=== PATIENT | male | born 1960 | race Caucasian/White ===

== ENCOUNTER → 2017-04-28 | Outpatient (CLI) | payer OTHER ==
--- NOTE | 2017-04-28 11:37 | REP ---
KUB, TWO VIEWS: HISTORY: Renal stones. A small amount of air is present in small and large intestine. There are no air fluid levels or dilated loops of intestine. There is no pneumoperitoneum. Calcification is present overlying the left kidney consistent with nephrolithiasis. The patient is status post stenting of an abdominal aortic aneurysm. IMPRESSION: 1. Nonspecific bowel gas pattern. 2. Left nephrolithiasis. Signed by Guille Geronimo MD 04/28/2017 11:52 A
== END ==
LOC: M SMT 10:46
PROVIDERS: ATTEND Nurse Practitioner Women's Health
DX: N20.0 Calculus of kidney (principal)

== ENCOUNTER → 2021-03-16 | Outpatient (REF) ==
--- NOTE | 2021-03-16 13:12 | REP ---
INDICATION: BACK + KNEE PAIN. COMPARISON: Comparison KUB April 28, 2017. TECHNIQUE: Four views of the lumbar spine are provided. FINDINGS: The patient is status post aorta bi-iliac stent graft the repair. There is a 1.1 cm calculus projecting over the upper pole collecting system of the left kidney. This is unchanged. Lumbar vertebral body heights are preserved. Alignment is normal. Disc spaces are maintained in the lumbar spine on the lateral radiograph. There is no evidence of spondylolysis or spondylolisthesis. There is osteoarthritic facet hypertrophy and sclerosis bilaterally at L4-5, L5-S1, and to a lesser extent, at L3-4. Psoas margins are symmetric. Sacrum and SI joints are intact. IMPRESSION: Aorto bi-iliac stent graft. Intrarenal nephrolithiasis left kidney 1.1 cm calculus. Degenerative disc and osteoarthritic facet changes as noted above. <Electronically signed by Lan Carr > 03/16/21 [id number]
--- NOTE | 2021-03-16 13:13 | REP ---
INDICATION: BACK + KNEE PAIN. COMPARISON: None. TECHNIQUE: Five views of the left knee are provided. FINDINGS: Five views of the left knee demonstrate mild superior pole and inferior pole articular spurring of the patella. There is minimal patellar spurring on the sunrise view. There is some vascular calcification. Bones, joints, and soft tissues are otherwise unremarkable. No erosive changes seen. No fracture or subluxation is seen. No opaque foreign body noted. IMPRESSION: Mild patellofemoral osteoarthritis. Vascular calcification. Otherwise negative. <Electronically signed by Lan Carr > 03/16/21 [id number]
== END ==
LOC: M PLAIMG 10:53
PROVIDERS: ATTEND Internal Medicine
DX: M17.12 Unilateral primary osteoarthritis, left knee (principal); N20.0 Calculus of kidney; Z95.5 Presence of coronary angioplasty implant and graft; M51.36 Other intervertebral disc degeneration, lumbar region; M51.37 Other intervertebral disc degeneration, lumbosacral region; M25.562 Pain in left knee; M54.9 Dorsalgia, unspecified

== ENCOUNTER 2023-03-19 19:48 | Inpatient (IN) | payer BC, OTHER ==
[~2023-03-19] VITALS: Ht 180.3 cm; Wt 118.0 kg
[2023-03-19 20:18] LABS: BASO # 0.1 10^3/uL (0.0-0.2); BASO % 0.7 % (0.0-1.0); EOS # 0.2 10^3/uL (0.0-0.5); EOS % 1.7 % (0.0-3.0); HEMATOCRIT 33.9 % (42.0-52.0); LYMPH % 20.9 % (24.0-44.0); MEAN CORPUSCULAR HEMOGLOBIN 24.3 pg (27.0-33.0); MEAN CORPUSCULAR HGB CONC 29.5 g/dl (32.0-36.5); MEAN CORPUSCULAR VOLUME 82.3 fl (80.0-96.0); MONO % 10.6 % (2.0-8.0); NEUTROPHILS # 6.2 10^3/uL (1.5-8.5); NEUTROPHILS % 65.6 % (36.0-66.0); PLATELET COUNT, AUTOMATED 271 10^3/uL (150-450); RED BLOOD COUNT 4.12 10^6/uL (4.30-6.10); WHITE BLOOD COUNT 9.5 10^3/uL (4.0-10.0)
[2023-03-19] MEDS ORDERED: AMIODARONE HCL 150 MG in IV 1 EA IV ONE (20:40)
[2023-03-19 20:42] LABS: CK-MB VALUE MASS 1.4 NG/ML (<3.6)
[2023-03-19] MEDS ORDERED: UNRESOLVED CLARIFICATION ENTRY XX STA (20:42)
[2023-03-19 20:44] LABS: ALBUMIN 2.9 G/DL (3.2-5.2); ALKALINE PHOSPHATASE 66 U/L (46-116); ALT/SGPT 14 U/L (7.0-40); AST/SGOT 10 U/L (<34); BILIRUBIN,DIRECT 0.3 MG/DL (<0.4); BILIRUBIN,TOTAL 0.8 MG/DL (0.3-1.2); BLOOD UREA NITROGEN 17 MG/DL (9-23); CALCIUM LEVEL 8.5 MG/DL (8.3-10.6); CARBON DIOXIDE LEVEL 36 MMOL/L (20-31); CHLORIDE LEVEL 103 MMOL/L (98-107); CREATININE FOR GFR 0.85 MG/DL (0.70-1.30); GLOMERULAR FILTRATION RATE > 60.0 (>49); GLUCOSE, FASTING 106 MG/DL (74-106); POTASSIUM SERUM 4.2 MMOL/L (3.5-5.1); SODIUM LEVEL 144 MMOL/L (136-145); TOTAL PROTEIN 5.3 G/DL (5.7-8.2)
[2023-03-19 20:55] LABS: RSV AMPLIFICATION NEGATIVE (NEGATIVE)
[2023-03-19 20:58] LABS: CPK CREATINE PHOSPHOKINASE 37 U/L (46-171); MB/CK RELATIVE INDEX 3.78 (< OR =4)
[2023-03-19] MEDS: METOPROLOL 5 MG/5 ML VIAL IV SCH ×6 (21:10→22:30)
[2023-03-19] MEDS ORDERED: ISOVUE-370 76% 100ML VIAL As Ordered ONE (21:26)
[2023-03-19 21:40] LABS: ABG BASE EXCESS 6.1 (-2.0-2.0); ABG HCO3 32.1 MMOL/L (22.0-26.0); ABG O2 SATURATION 98.1 % (95.0-99.0); ABG PARTIAL PRESSURE CO2 53.2 mmHg (35.0-45.0); ABG PARTIAL PRESSURE O2 106.5 mmHg (75.0-100.0); ABG TOTAL CO2 33.7 MMOL/L (23.0-31.0); ABG pH (ARTERIAL) 7.398 UNITS (7.350-7.450)
[2023-03-19] MEDS ORDERED: METOPROLOL TART 50 MG TAB PO ONE (22:20)
[2023-03-19 23:36] LABS: PROCALCITONIN 0.07 ng/ml
[2023-03-20] VITALS (13 sets, daily range): BP systolic 130–138; BP diastolic 64–95; TEMP 97.8–98; O2SAT 96–98
[2023-03-20] MEDS ORDERED: IPRATROPIUM 0.5MG/ALBUTEROL 2.5MG INH SOL UD 3ML (DUONEB) NEB SCH (02:00)
[2023-03-20] MEDS ORDERED: FUROSEMIDE 40MG/4ML VIAL IV ONE (02:20)
[2023-03-20] MEDS ORDERED: MAALOX 30 ML SUSP *UDC PO PRN (03:35)
[2023-03-20] MEDS ORDERED: MOM 30ML SUSPENSION UDC PO PRN (03:35)
[2023-03-20] MEDS ORDERED: ACETAMINOPHEN TAB 650MG DOSE (2X325MG) PO PRN (03:35)
[2023-03-20] MEDS ORDERED: TAMS1CAP17 PO (03:46)
[2023-03-20] MEDS ORDERED: FURO40TA2 PO (03:46)
[2023-03-20] MEDS ORDERED: LEVA1.2519 PO (03:52)
[2023-03-20] MEDS ORDERED: METO1TAB33 PO (03:52)
[2023-03-20] MEDS ORDERED: ELIQ5TAB PO (03:52)
[2023-03-20] MEDS ORDERED: POTA1TAB23 PO (03:52)
[2023-03-20] MEDS ORDERED: FERR325T19 PO (03:52)
[2023-03-20] MEDS ORDERED: FINA5TAB2 PO (03:52)
[2023-03-20] MEDS ORDERED: ASPI-226 PO (03:52)
[2023-03-20] MEDS ORDERED: LISI20TA33 PO (03:52)
[2023-03-20] MEDS ORDERED: ATOR40TA75 PO (03:52)
[2023-03-20] MEDS ORDERED: HOME MED LIST COMPLETE! XX SCH (03:55)
[2023-03-20] MEDS: FUROSEMIDE 40MG/4ML VIAL IV SCH ×2 (07:29→17:40)
[2023-03-20] MEDS: ASPIRIN 81MG ENTERIC TABLET PO SCH (07:30)
[2023-03-20] MEDS: TAMSULOSIN 0.4 MG CAP PO SCH (07:30)
[2023-03-20] MEDS: APIXABAN 5 MG TAB (ELIQUIS) PO SCH ×2 (07:31→20:35)
[2023-03-20] MEDS: FINASTERIDE 5MG TAB PO SCH (07:31)
[2023-03-20 07:34] LABS: HEMATOCRIT 35.7 % (42.0-52.0); HEMOGLOBIN 10.4 g/dl (13.5-17.5); MEAN CORPUSCULAR HEMOGLOBIN 24.3 pg (27.0-33.0); MEAN CORPUSCULAR HGB CONC 29.1 g/dl (32.0-36.5); MEAN CORPUSCULAR VOLUME 83.4 fl (80.0-96.0); PLATELET COUNT, AUTOMATED 286 10^3/uL (150-450); RED BLOOD COUNT 4.28 10^6/uL (4.30-6.10); WHITE BLOOD COUNT 10.2 10^3/uL (4.0-10.0)
[2023-03-20] MEDS: LEVALBUTEROL 1.25MG 0.5ML CONCENTRATE NEB INH SCH ×3 (07:37→20:13)
[2023-03-20 08:10] LABS: ALBUMIN 2.9 G/DL (3.2-5.2); ALKALINE PHOSPHATASE 70 U/L (46-116); ALT/SGPT 19 U/L (7.0-40); AST/SGOT 9 U/L (<34); BLOOD UREA NITROGEN 17 MG/DL (9-23); CALCIUM LEVEL 8.6 MG/DL (8.3-10.6); CARBON DIOXIDE LEVEL 35 MMOL/L (20-31); CHLORIDE LEVEL 100 MMOL/L (98-107); CREATININE FOR GFR 0.79 MG/DL (0.70-1.30); GLOMERULAR FILTRATION RATE > 60.0 (>49); GLUCOSE, FASTING 222 MG/DL (74-106); POTASSIUM SERUM 4.4 MMOL/L (3.5-5.1); SODIUM LEVEL 140 MMOL/L (136-145); TOTAL PROTEIN 5.8 G/DL (5.7-8.2)
[2023-03-20] MEDS ORDERED: METOPROLOL SUCC (TopROL XL) 100MG *XL* TAB PO SCH (09:00)
[2023-03-20] MEDS ORDERED: GLUCAGON INJ 1MG VIAL SC PRN (11:00)
[2023-03-20] MEDS ORDERED: DEXTROSE 50% 50ML SYRINGE IV PRN (11:00)
[2023-03-20] MEDS ORDERED: GLUCOSE 4GM CHEW TABLET PO PRN (11:00)
[2023-03-20] MEDS: METOPROLOL TART 50 MG TAB PO SCH ×2 (11:28→17:40)
[2023-03-20] MEDS: INSULIN LISPRO (NovoLOG) PER UNIT SC SCH ×2 (12:47→17:30)
[2023-03-20 13:53] LABS: HEMOGLOBIN A1c 5.8 % (4.0-6.0)
[2023-03-20] MEDS: ATORVASTATIN 20 MG TAB PO SCH (20:34)
[2023-03-21] VITALS (22 sets, daily range): BP systolic 104–161; BP diastolic 61–94; TEMP 96.7–97.9; O2SAT 83–99
[2023-03-21] MEDS: METOPROLOL TART 50 MG TAB PO SCH ×5 (00:21→23:03)
[2023-03-21] MEDS: LEVALBUTEROL 1.25MG 0.5ML CONCENTRATE NEB INH SCH ×4 (01:25→19:58)
[2023-03-21 06:24] LABS: MEAN CORPUSCULAR HEMOGLOBIN 24.2 pg (27.0-33.0); MEAN CORPUSCULAR HGB CONC 28.6 g/dl (32.0-36.5); MEAN CORPUSCULAR VOLUME 84.7 fl (80.0-96.0); PLATELET COUNT, AUTOMATED 261 10^3/uL (150-450); RED BLOOD COUNT 4.13 10^6/uL (4.30-6.10); WHITE BLOOD COUNT 12.2 10^3/uL (4.0-10.0)
[2023-03-21 06:52] LABS: ALBUMIN 2.8 G/DL (3.2-5.2); ALKALINE PHOSPHATASE 62 U/L (46-116); ALT/SGPT 16 U/L (7.0-40); AST/SGOT < 8 U/L (<34); BILIRUBIN,TOTAL 0.7 MG/DL (0.3-1.2); BLOOD UREA NITROGEN 23 MG/DL (9-23); CALCIUM LEVEL 8.8 MG/DL (8.3-10.6); CARBON DIOXIDE LEVEL > 40.0 MMOL/L (20-31); CHLORIDE LEVEL 99 MMOL/L (98-107); CREATININE FOR GFR 0.92 MG/DL (0.70-1.30); GLOMERULAR FILTRATION RATE > 60.0 (>49); GLUCOSE, FASTING 117 MG/DL (74-106); MAGNESIUM LEVEL 2.3 MG/DL (1.8-2.4); POTASSIUM SERUM 4.7 MMOL/L (3.5-5.1); SODIUM LEVEL 144 MMOL/L (136-145); TOTAL PROTEIN 5.4 G/DL (5.7-8.2)
[2023-03-21] MEDS: INSULIN LISPRO (NovoLOG) PER UNIT SC SCH ×3 (07:30→17:12)
[2023-03-21] MEDS: ASPIRIN 81MG ENTERIC TABLET PO SCH (09:23)
[2023-03-21] MEDS: TAMSULOSIN 0.4 MG CAP PO SCH (09:23)
[2023-03-21] MEDS: FINASTERIDE 5MG TAB PO SCH (09:23)
[2023-03-21] MEDS: APIXABAN 5 MG TAB (ELIQUIS) PO SCH ×2 (09:23→20:34)
[2023-03-21] MEDS ORDERED: DIGOXIN INJ 0.5 MG/2 ML AMP IV ONE ×3 (09:40→23:00)
[2023-03-21] MEDS: TIOTROPIUM INHALER/CAPSULE (SPIRIVA) INH SCH (09:55)
[2023-03-21] MEDS: FUROSEMIDE 40MG/4ML VIAL IV SCH ×2 (10:39→16:47)
[2023-03-21] MEDS: ATORVASTATIN 20 MG TAB PO SCH (20:34)
[2023-03-22] VITALS (7 sets, daily range): BP systolic 107–142; BP diastolic 58–98; TEMP 96.9–97.6; O2SAT 94–97
[2023-03-22] MEDS: LEVALBUTEROL 1.25MG 0.5ML CONCENTRATE NEB INH SCH ×4 (01:40→19:25)
[2023-03-22] MEDS: METOPROLOL TART 50 MG TAB PO SCH ×4 (06:12→23:34)
[2023-03-22] MEDS: TIOTROPIUM INHALER/CAPSULE (SPIRIVA) INH SCH (07:22)
[2023-03-22] MEDS: INSULIN LISPRO (NovoLOG) PER UNIT SC SCH ×3 (07:30→17:30)
[2023-03-22] MEDS: FUROSEMIDE 40MG/4ML VIAL IV SCH (09:12)
[2023-03-22] MEDS: TAMSULOSIN 0.4 MG CAP PO SCH (09:13)
[2023-03-22] MEDS: APIXABAN 5 MG TAB (ELIQUIS) PO SCH ×2 (09:13→20:04)
[2023-03-22] MEDS: DIGOXIN 0.25 MG TAB PO SCH (09:13)
[2023-03-22] MEDS: ASPIRIN 81MG ENTERIC TABLET PO SCH (09:13)
[2023-03-22] MEDS: FINASTERIDE 5MG TAB PO SCH (09:13)
[2023-03-22 12:26] LABS: ABG BASE EXCESS 11.9 (-2.0-2.0); ABG HCO3 37.4 MMOL/L (22.0-26.0); ABG O2 SATURATION 94.8 % (95.0-99.0); ABG PARTIAL PRESSURE CO2 53.1 mmHg (35.0-45.0); ABG PARTIAL PRESSURE O2 72.4 mmHg (75.0-100.0); ABG STANDARD HCO3 35.6 MMOL/L. (22.0-26.0); ABG TOTAL CO2 39.1 MMOL/L (23.0-31.0); ABG pH (ARTERIAL) 7.466 UNITS (7.350-7.450)
[2023-03-22] MEDS: ATORVASTATIN 20 MG TAB PO SCH (20:04)
[2023-03-23] VITALS (8 sets, daily range): BP systolic 100–136; BP diastolic 56–72; TEMP 97.5–98.3; O2SAT 93–98
[2023-03-23] MEDS: LEVALBUTEROL 1.25MG 0.5ML CONCENTRATE NEB INH SCH ×4 (01:11→19:21)
[2023-03-23] MEDS: METOPROLOL TART 50 MG TAB PO SCH ×4 (05:34→23:40)
[2023-03-23 05:54] LABS: BASO # 0.1 10^3/uL (0.0-0.2); BASO % 0.6 % (0.0-1.0); EOS # 0.1 10^3/uL (0.0-0.5); EOS % 1.8 % (0.0-3.0); HEMATOCRIT 34.5 % (42.0-52.0); HEMOGLOBIN 10.2 g/dl (13.5-17.5); LYMPH # 1.7 10^3/uL (1.5-5.0); LYMPH % 21.1 % (24.0-44.0); MEAN CORPUSCULAR HGB CONC 29.6 g/dl (32.0-36.5); MEAN CORPUSCULAR VOLUME 84.6 fl (80.0-96.0); MONO # 0.7 10^3/uL (0.0-0.8); MONO % 8.7 % (2.0-8.0); NEUTROPHILS # 5.3 10^3/uL (1.5-8.5); NEUTROPHILS % 67.5 % (36.0-66.0); PLATELET COUNT, AUTOMATED 249 10^3/uL (150-450); RED BLOOD COUNT 4.08 10^6/uL (4.30-6.10); WHITE BLOOD COUNT 7.8 10^3/uL (4.0-10.0)
[2023-03-23 06:15] LABS: BLOOD UREA NITROGEN 20 MG/DL (9-23); CALCIUM LEVEL 8.2 MG/DL (8.3-10.6); CARBON DIOXIDE LEVEL > 40.0 MMOL/L (20-31); CHLORIDE LEVEL 101 MMOL/L (98-107); CREATININE FOR GFR 0.86 MG/DL (0.70-1.30); GLOMERULAR FILTRATION RATE > 60.0 (>49); GLUCOSE, FASTING 102 MG/DL (74-106); MAGNESIUM LEVEL 2.2 MG/DL (1.8-2.4); POTASSIUM SERUM 3.8 MMOL/L (3.5-5.1); SODIUM LEVEL 145 MMOL/L (136-145)
[2023-03-23] MEDS: TIOTROPIUM INHALER/CAPSULE (SPIRIVA) INH SCH (07:50)
[2023-03-23] MEDS: acetaZOLAMIDE 250MG TAB PO SCH ×2 (08:34→20:27)
[2023-03-23] MEDS: TAMSULOSIN 0.4 MG CAP PO SCH (08:34)
[2023-03-23] MEDS: ASPIRIN 81MG ENTERIC TABLET PO SCH (08:34)
[2023-03-23] MEDS: INSULIN LISPRO (NovoLOG) PER UNIT SC SCH ×3 (08:34→17:45)
[2023-03-23] MEDS: DIGOXIN 0.25 MG TAB PO SCH (08:35)
[2023-03-23] MEDS: FINASTERIDE 5MG TAB PO SCH (08:35)
[2023-03-23] MEDS: APIXABAN 5 MG TAB (ELIQUIS) PO SCH ×2 (08:35→20:25)
[2023-03-23] MEDS ORDERED: FUROSEMIDE 40MG/4ML VIAL IV SCH (09:00)
[2023-03-23] MEDS: ATORVASTATIN 20 MG TAB PO SCH (20:26)
[2023-03-24] VITALS: BP 121/72; TEMP 97.8; O2SAT 98
[2023-03-24] MEDS: LEVALBUTEROL 1.25MG 0.5ML CONCENTRATE NEB INH SCH ×2 (01:00→07:53)
[2023-03-24 03:44] VITALS: BP 96/50; TEMP 97.4; O2SAT 95
[2023-03-24 04:00] VITALS: BP 96/50; TEMP 97.4; O2SAT 95
[2023-03-24 05:10] LABS: VENOUS BASE EXCESS 1.1 (-2.0-2.0); VENOUS HCO3 28.8 MMOL/L (23.0-27.0); VENOUS O2 SATURATION 55.9 % (60.0-80.0); VENOUS PARTIAL PRESSURE CO2 60.9 mmHg (38.0-50.0); VENOUS PARTIAL PRESSURE O2 34.2 mmHg (30.0-50.0); VENOUS PH 7.292 UNITS (7.330-7.430); VENOUS STANDARD HCO3 24.7 MMOL/L; VENOUS TOTAL CO2 30.6 MMOL/L (24.0-28.0)
[2023-03-24] MEDS: METOPROLOL TART 50 MG TAB PO SCH ×2 (05:25→13:20)
[2023-03-24 07:41] VITALS: BP 102/63; TEMP 97.1; O2SAT 97
[2023-03-24] MEDS: TIOTROPIUM INHALER/CAPSULE (SPIRIVA) INH SCH (07:53)
[2023-03-24] MEDS: APIXABAN 5 MG TAB (ELIQUIS) PO SCH (08:18)
[2023-03-24] MEDS: TAMSULOSIN 0.4 MG CAP PO SCH (08:18)
[2023-03-24] MEDS: ASPIRIN 81MG ENTERIC TABLET PO SCH (08:18)
[2023-03-24] MEDS: INSULIN LISPRO (NovoLOG) PER UNIT SC SCH ×2 (08:18→12:00)
[2023-03-24] MEDS: FINASTERIDE 5MG TAB PO SCH (08:18)
[2023-03-24] MEDS: DIGOXIN 0.25 MG TAB PO SCH (08:22)
[2023-03-24] MEDS: acetaZOLAMIDE 250MG TAB PO SCH (08:26)
[2023-03-24] MEDS ORDERED: TORSEMIDE 20 MG TAB PO SCH (09:00)
[2023-03-24] MEDS ORDERED: LISI10TA22 PO (09:19)
[2023-03-24] MEDS ORDERED: METO200T28 PO (09:19)
[2023-03-24] MEDS ORDERED: TAMS1CAP17 PO (09:19)
[2023-03-24] MEDS ORDERED: DIGO0.253 PO (09:19)
[2023-03-24 13:20] VITALS: BP 128/68
== END 2023-03-24 15:49 | disposition home or self-care (01) | DRG 201 ==
LOC: M ED 19:48 → M ED INP 03-20 03:31 → ENRESERV 03-20 14:05 → M PCU 03-20 15:03
PROVIDERS: ADMIT Family Medicine; ATTEND Family Medicine
PROC: B246ZZZ Ultrasonography of Right and Left Heart (ICD-10-PCS; principal; 2023-03-21)
DX: I48.91 Unspecified atrial fibrillation (principal); I50.33 Acute on chronic diastolic (congestive) heart failure; E87.3 Alkalosis; J96.11 Chronic respiratory failure with hypoxia; I27.20 Pulmonary hypertension, unspecified; E66.2 Morbid (severe) obesity with alveolar hypoventilation; J96.12 Chronic respiratory failure with hypercapnia; Z99.81 Dependence on supplemental oxygen; I11.0 Hypertensive heart disease with heart failure; I27.81 Cor pulmonale (chronic); L97.919 Non-pressure chronic ulcer of unspecified part of right lower leg with unspecified severity; L97.929 Non-pressure chronic ulcer of unspecified part of left lower leg with unspecified severity; G62.9 Polyneuropathy, unspecified; R16.0 Hepatomegaly, not elsewhere classified; J44.9 Chronic obstructive pulmonary disease, unspecified; F17.210 Nicotine dependence, cigarettes, uncomplicated; N40.0 Benign prostatic hyperplasia without lower urinary tract symptoms; E78.5 Hyperlipidemia, unspecified; B35.1 Tinea unguium; I87.2 Venous insufficiency (chronic) (peripheral); D50.9 Iron deficiency anemia, unspecified; F32.A Depression, unspecified; I25.10 Atherosclerotic heart disease of native coronary artery without angina pectoris; R26.89 Other abnormalities of gait and mobility; I25.2 Old myocardial infarction; R73.02 Impaired glucose tolerance (oral); M54.30 Sciatica, unspecified side; Z20.822 Contact with and (suspected) exposure to COVID-19; Z79.01 Long term (current) use of anticoagulants; Z79.82 Long term (current) use of aspirin; Z79.899 Other long term (current) drug therapy; Z91.030 Bee allergy status; Z91.018 Allergy to other foods; Z66 Do not resuscitate; Z68.37 Body mass index [BMI] 37.0-37.9, adult

== ENCOUNTER 2023-04-12 23:25 | Inpatient (IN) | payer MEDICARE, BC ==
[~2023-04-12] VITALS: Ht 180.3 cm; Wt 117.6 kg
[~2023-04-12 23:25] MED LIST: ASPI-226 PO; ATOR40TA75 PO; DIGO0.253 PO; ELIQ5TAB PO; FERR325T19 PO; FINA5TAB2 PO; FURO40TA2 PO; LEVA1.2519 PO; LISI10TA22 PO; LISI20TA33 PO; METO1TAB33 PO; METO200T28 PO; POTA1TAB23 PO; TAMS1CAP17 PO
[2023-04-13 00:22] LABS: BASO % 0.1 % (0.0-1.0); EOS # 0.1 10^3/uL (0.0-0.5); EOS % 1.1 % (0.0-3.0); HEMATOCRIT 38.9 % (42.0-52.0); HEMOGLOBIN 11.3 g/dl (13.5-17.5); LYMPH # 2.1 10^3/uL (1.5-5.0); LYMPH % 16.2 % (24.0-44.0); MEAN CORPUSCULAR HEMOGLOBIN 24.8 pg (27.0-33.0); MEAN CORPUSCULAR VOLUME 85.5 fl (80.0-96.0); MONO # 1.1 10^3/uL (0.0-0.8); MONO % 8.2 % (2.0-8.0); NEUTROPHILS # 9.7 10^3/uL (1.5-8.5); NEUTROPHILS % 73.6 % (36.0-66.0); PLATELET COUNT, AUTOMATED 218 10^3/uL (150-450); RED BLOOD COUNT 4.55 10^6/uL (4.30-6.10); WHITE BLOOD COUNT 13.2 10^3/uL (4.0-10.0)
[2023-04-13 00:33] LABS: CPK CREATINE PHOSPHOKINASE 52 U/L (46-171)
[2023-04-13 00:36] LABS: CK-MB VALUE MASS 2.7 NG/ML (<3.6); MB/CK RELATIVE INDEX 5.19 (< OR =4)
[2023-04-13 00:38] LABS: INR 1.37; PROTHROMBIN TIME 16.5 SECONDS (12.5-14.5)
[2023-04-13 00:40] LABS: THYROID STIMULATING HORMONE 1.524 uIU/ML (0.55-4.78); THYROXINE (T4) 10.5 UG/DL (4.5-10.9)
[2023-04-13 00:43] LABS: ALBUMIN 3.1 G/DL (3.2-5.2); ALKALINE PHOSPHATASE 68 U/L (46-116); ALT/SGPT 18 U/L (7.0-40); AST/SGOT 12 U/L (<34); BILIRUBIN,DIRECT 0.9 MG/DL (<0.4); BILIRUBIN,TOTAL 2.6 MG/DL (0.3-1.2); BLOOD UREA NITROGEN 26 MG/DL (9-23); CALCIUM LEVEL 7.9 MG/DL (8.3-10.6); CARBON DIOXIDE LEVEL > 40.0 MMOL/L (20-31); CHLORIDE LEVEL 100 MMOL/L (98-107); CREATININE FOR GFR 0.96 MG/DL (0.70-1.30); GLOMERULAR FILTRATION RATE > 60.0 (>49); GLUCOSE, FASTING 111 MG/DL (74-106); POTASSIUM SERUM 3.3 MMOL/L (3.5-5.1); SODIUM LEVEL 147 MMOL/L (136-145); TOTAL PROTEIN 5.4 G/DL (5.7-8.2)
[2023-04-13 01:11] LABS: ABG BASE EXCESS 10.7 (-2.0-2.0); ABG HCO3 36.5 MMOL/L (22.0-26.0); ABG O2 SATURATION 97.5 % (95.0-99.0); ABG PARTIAL PRESSURE CO2 54.2 mmHg (35.0-45.0); ABG STANDARD HCO3 34.5 MMOL/L. (22.0-26.0); ABG TOTAL CO2 38.2 MMOL/L (23.0-31.0); ABG pH (ARTERIAL) 7.446 UNITS (7.350-7.450)
[2023-04-13 01:33] LABS: CK-MB VALUE MASS 2.7 NG/ML (<3.6)
[2023-04-13 01:34] LABS: MB/CK RELATIVE INDEX 5.19 (< OR =4)
[2023-04-13] MEDS ORDERED: ISOVUE-370 76% 100ML VIAL As Ordered ONE (04:33)
[2023-04-13] MEDS ORDERED: FUROSEMIDE 40MG/4ML VIAL IV ONE (06:25)
[2023-04-13] MEDS ORDERED: methylPREDNISolone 125MG 2ML VIAL IV ONE (06:25)
[2023-04-13] MEDS ORDERED: IPRATROPIUM 0.5MG/ALBUTEROL 2.5MG INH SOL UD 3ML (DUONEB) NEB ONE (06:25)
[2023-04-13] MEDS ORDERED: METOPROLOL SUCC (TopROL XL) 100MG *XL* TAB PO ONE (06:30)
[2023-04-13] MEDS: IPRATROPIUM 0.5MG/ALBUTEROL 2.5MG INH SOL UD 3ML (DUONEB) NEB PRN (07:37)
[2023-04-13] MEDS ORDERED: PRED20TA PO (08:22)
[2023-04-13] MEDS ORDERED: AMOX875T2 PO (08:22)
[2023-04-13] MEDS ORDERED: DIGOXIN INJ 0.5 MG/2 ML AMP IV STA (08:43)
[2023-04-13] MEDS ORDERED: MED REC IN PROGRESS XX SCH (10:45)
[2023-04-13] MEDS ORDERED: LISI20TA33 PO (12:03)
[2023-04-13] MEDS ORDERED: POTA-151 PO (12:03)
[2023-04-13] MEDS ORDERED: FLOM0.4C39 PO (12:03)
[2023-04-13] MEDS ORDERED: METO200T28 PO (12:03)
[2023-04-13] MEDS ORDERED: DIGO0.253 PO (12:03)
[2023-04-13] MEDS ORDERED: DILT30TA PO (12:03)
[2023-04-13] MEDS ORDERED: PANT40TA29 PO (12:03)
[2023-04-13] MEDS ORDERED: AMIO200T49 PO (12:03)
[2023-04-13] MEDS ORDERED: HOME MED LIST COMPLETE! XX SCH (12:05)
[2023-04-13] MEDS: FUROSEMIDE 40MG/4ML VIAL IV ONE ×2 (12:10→12:22)
[2023-04-13 13:24] LABS: BLOOD UREA NITROGEN 22 MG/DL (9-23); CALCIUM LEVEL 8.1 MG/DL (8.3-10.6); CARBON DIOXIDE LEVEL 40 MMOL/L (20-31); CHLORIDE LEVEL 98 MMOL/L (98-107); CREATININE FOR GFR 0.82 MG/DL (0.70-1.30); GLOMERULAR FILTRATION RATE > 60.0 (>49); GLUCOSE, FASTING 233 MG/DL (74-106); POTASSIUM SERUM 3.8 MMOL/L (3.5-5.1); SODIUM LEVEL 143 MMOL/L (136-145)
[2023-04-13] MEDS ORDERED: POTASSIUM CHLORIDE 10MEQ SR TABLET PO ONE (15:00)
[2023-04-13 16:44] VITALS: BP 154/90; TEMP 97.1; O2SAT 96
[2023-04-13] MEDS ORDERED: FUROSEMIDE 40MG/4ML VIAL IV SCH ×2 (17:00→18:00)
[2023-04-13] MEDS: APIXABAN 5 MG TAB (ELIQUIS) PO SCH ×2 (18:02→20:37)
[2023-04-13 20:00] VITALS: BP 156/80; TEMP 97.8; O2SAT 95
[2023-04-13] MEDS: ATORVASTATIN 20 MG TAB PO SCH (20:37)
[2023-04-13] MEDS: DOCUSATE SODIUM 100MG CAPSULE PO SCH (20:37)
[2023-04-13] MEDS: LEVALBUTEROL 1.25MG 0.5ML CONCENTRATE NEB INH SCH (21:22)
[2023-04-14] VITALS (7 sets, daily range): BP systolic 112–157; BP diastolic 76–86; TEMP 97.1–98.2; O2SAT 92–98
[2023-04-14] MEDS: IPRATROPIUM 0.5MG/ALBUTEROL 2.5MG INH SOL UD 3ML (DUONEB) NEB PRN (01:56)
[2023-04-14] MEDS: guaiFENesin SYRUP 200MG 10ML UDC PO PRN ×2 (03:10→21:01)
[2023-04-14] MEDS: LEVALBUTEROL 1.25MG 0.5ML CONCENTRATE NEB INH SCH ×3 (06:03→20:27)
[2023-04-14 08:28] LABS: BASO % 0.1 % (0.0-1.0); EOS % 0.1 % (0.0-3.0); HEMATOCRIT 37.5 % (42.0-52.0); HEMOGLOBIN 11.3 g/dl (13.5-17.5); LYMPH # 1.5 10^3/uL (1.5-5.0); LYMPH % 7.9 % (24.0-44.0); MEAN CORPUSCULAR HEMOGLOBIN 25.3 pg (27.0-33.0); MEAN CORPUSCULAR HGB CONC 30.1 g/dl (32.0-36.5); MEAN CORPUSCULAR VOLUME 84.1 fl (80.0-96.0); MONO # 1.2 10^3/uL (0.0-0.8); MONO % 6.4 % (2.0-8.0); NEUTROPHILS # 16.2 10^3/uL (1.5-8.5); NEUTROPHILS % 84.7 % (36.0-66.0); PLATELET COUNT, AUTOMATED 236 10^3/uL (150-450); RED BLOOD COUNT 4.46 10^6/uL (4.30-6.10); WHITE BLOOD COUNT 19.1 10^3/uL (4.0-10.0)
[2023-04-14 08:53] LABS: BLOOD UREA NITROGEN 30 MG/DL (9-23); CALCIUM LEVEL 8.8 MG/DL (8.3-10.6); CARBON DIOXIDE LEVEL > 40.0 MMOL/L (20-31); CHLORIDE LEVEL 102 MMOL/L (98-107); CREATININE FOR GFR 0.88 MG/DL (0.70-1.30); GLOMERULAR FILTRATION RATE > 60.0 (>49); GLUCOSE, FASTING 120 MG/DL (74-106); POTASSIUM SERUM 3.6 MMOL/L (3.5-5.1); SODIUM LEVEL 146 MMOL/L (136-145)
[2023-04-14] MEDS: METOPROLOL SUCC (TopROL XL) 100MG *XL* TAB PO SCH (09:07)
[2023-04-14] MEDS: FINASTERIDE 5MG TAB PO SCH (09:07)
[2023-04-14] MEDS: DOCUSATE SODIUM 100MG CAPSULE PO SCH ×2 (09:07→20:05)
[2023-04-14] MEDS: TAMSULOSIN 0.4 MG CAP PO SCH (09:07)
[2023-04-14] MEDS: PANTOPRAZOLE 40MG TAB (PROTONIX) PO SCH (09:07)
[2023-04-14] MEDS: APIXABAN 5 MG TAB (ELIQUIS) PO SCH ×2 (09:07→20:05)
[2023-04-14] MEDS: DIGOXIN 0.25 MG TAB PO SCH (09:08)
[2023-04-14] MEDS: ACETAMINOPHEN TAB 650MG DOSE (2X325MG) PO PRN (20:04)
[2023-04-14] MEDS: ATORVASTATIN 20 MG TAB PO SCH (20:05)
[2023-04-14 22:49] LABS: APPEARANCE, URINE CLEAR (CLEAR); BACTERIA, URINE AUTO 1+ (NEGATIVE); BILIRUBIN, URINE AUTO NEGATIVE (NEGATIVE); BLOOD, URINE BLOOD 1+ (NEGATIVE); COLOR, URINE YELLOW (YELLOW); GLUCOSE, URINE (UA) AUTO NEGATIVE (NEGATIVE); KETONE, URINE AUTO NEGATIVE (NEGATIVE); LEUKOCYTE ESTERASE, URINE AUTO TRACE (NEGATIVE); MUCUS, URINE SMALL (NEGATIVE); NITRITE, URINE AUTO NEGATIVE (NEGATIVE); PROTEIN, URINE AUTO NEGATIVE (NEGATIVE); RBC, URINE AUTO 2 /HPF (0-3); SPECIFIC GRAVITY URINE AUTO 1.027 (1.002-1.035); SQUAMOUS EPITHELIAL CELL UR AU 0 /HPF (0-6); WBC, URINE AUTO 3 /HPF (0-3)
[2023-04-15 04:05] VITALS: BP 138/85; TEMP 97.6; O2SAT 97
[2023-04-15] MEDS: ACETAMINOPHEN TAB 650MG DOSE (2X325MG) PO PRN ×2 (04:16→18:44)
[2023-04-15] MEDS: IPRATROPIUM 0.5MG/ALBUTEROL 2.5MG INH SOL UD 3ML (DUONEB) NEB PRN (05:16)
[2023-04-15 05:46] LABS: BASO % 0.1 % (0.0-1.0); EOS # 0.1 10^3/uL (0.0-0.5); EOS % 0.8 % (0.0-3.0); HEMOGLOBIN 10.6 g/dl (13.5-17.5); LYMPH # 2.3 10^3/uL (1.5-5.0); LYMPH % 17.7 % (24.0-44.0); MEAN CORPUSCULAR HEMOGLOBIN 24.9 pg (27.0-33.0); MEAN CORPUSCULAR HGB CONC 28.6 g/dl (32.0-36.5); MEAN CORPUSCULAR VOLUME 86.9 fl (80.0-96.0); MONO # 0.7 10^3/uL (0.0-0.8); MONO % 5.5 % (2.0-8.0); NEUTROPHILS # 9.6 10^3/uL (1.5-8.5); NEUTROPHILS % 75.4 % (36.0-66.0); PLATELET COUNT, AUTOMATED 195 10^3/uL (150-450); RED BLOOD COUNT 4.26 10^6/uL (4.30-6.10); WHITE BLOOD COUNT 12.8 10^3/uL (4.0-10.0)
[2023-04-15 06:15] LABS: BLOOD UREA NITROGEN 28 MG/DL (9-23); CALCIUM LEVEL 8.8 MG/DL (8.3-10.6); CARBON DIOXIDE LEVEL > 40.0 MMOL/L (20-31); CHLORIDE LEVEL 102 MMOL/L (98-107); CREATININE FOR GFR 0.91 MG/DL (0.70-1.30); GLOMERULAR FILTRATION RATE > 60.0 (>49); GLUCOSE, FASTING 83 MG/DL (74-106); POTASSIUM SERUM 3.4 MMOL/L (3.5-5.1); SODIUM LEVEL 149 MMOL/L (136-145)
[2023-04-15] MEDS: LEVALBUTEROL 1.25MG 0.5ML CONCENTRATE NEB INH SCH ×3 (07:24→19:20)
[2023-04-15] MEDS ORDERED: tiZANidine 4 MG TAB PO ONE (08:30)
[2023-04-15 08:46] VITALS: BP 118/82; TEMP 96.6; O2SAT 90
[2023-04-15] MEDS: METOPROLOL SUCC (TopROL XL) 100MG *XL* TAB PO SCH (08:47)
[2023-04-15] MEDS: DIGOXIN 0.25 MG TAB PO SCH (08:48)
[2023-04-15] MEDS: APIXABAN 5 MG TAB (ELIQUIS) PO SCH ×2 (08:48→20:02)
[2023-04-15] MEDS: TAMSULOSIN 0.4 MG CAP PO SCH (08:48)
[2023-04-15] MEDS: DOCUSATE SODIUM 100MG CAPSULE PO SCH ×2 (08:48→19:37)
[2023-04-15] MEDS: PANTOPRAZOLE 40MG TAB (PROTONIX) PO SCH (08:48)
[2023-04-15] MEDS: FINASTERIDE 5MG TAB PO SCH (08:49)
[2023-04-15] MEDS: LIDOCAINE 5% (LIDODERM) PATCH TD SCH (08:49)
[2023-04-15 11:35] VITALS: BP 128/92; TEMP 96.9; O2SAT 95
[2023-04-15] MEDS: POTASSIUM CHLORIDE 10MEQ SR TABLET PO SCH (12:36)
[2023-04-15] MEDS: guaiFENesin SYRUP 200MG 10ML UDC PO PRN (12:39)
[2023-04-15 15:46] VITALS: BP 140/76; TEMP 96.6; O2SAT 95
[2023-04-15 19:20] VITALS: BP 130/69; TEMP 97; O2SAT 96
[2023-04-15] MEDS: ATORVASTATIN 20 MG TAB PO SCH (20:02)
[2023-04-15 23:06] VITALS: BP 141/85; TEMP 97; O2SAT 96
[2023-04-16 03:15] VITALS: BP 113/75; TEMP 97.1; O2SAT 93
[2023-04-16] MEDS: LEVALBUTEROL 1.25MG 0.5ML CONCENTRATE NEB INH PRN ×2 (04:21→12:41)
[2023-04-16 04:59] LABS: BASO % 0.1 % (0.0-1.0); EOS # 0.1 10^3/uL (0.0-0.5); EOS % 1.2 % (0.0-3.0); HEMATOCRIT 35.5 % (42.0-52.0); HEMOGLOBIN 10.4 g/dl (13.5-17.5); LYMPH # 1.6 10^3/uL (1.5-5.0); LYMPH % 13.9 % (24.0-44.0); MEAN CORPUSCULAR HEMOGLOBIN 25.1 pg (27.0-33.0); MEAN CORPUSCULAR HGB CONC 29.3 g/dl (32.0-36.5); MEAN CORPUSCULAR VOLUME 85.7 fl (80.0-96.0); MONO # 0.6 10^3/uL (0.0-0.8); MONO % 5.6 % (2.0-8.0); NEUTROPHILS # 8.8 10^3/uL (1.5-8.5); NEUTROPHILS % 78.8 % (36.0-66.0); PLATELET COUNT, AUTOMATED 183 10^3/uL (150-450); RED BLOOD COUNT 4.14 10^6/uL (4.30-6.10); WHITE BLOOD COUNT 11.1 10^3/uL (4.0-10.0)
[2023-04-16 05:30] LABS: BLOOD UREA NITROGEN 23 MG/DL (9-23); CALCIUM LEVEL 8.2 MG/DL (8.3-10.6); CARBON DIOXIDE LEVEL 39 MMOL/L (20-31); CHLORIDE LEVEL 104 MMOL/L (98-107); CREATININE FOR GFR 0.85 MG/DL (0.70-1.30); GLOMERULAR FILTRATION RATE > 60.0 (>49); GLUCOSE, FASTING 93 MG/DL (74-106); POTASSIUM SERUM 3.9 MMOL/L (3.5-5.1); SODIUM LEVEL 145 MMOL/L (136-145)
[2023-04-16 07:36] VITALS: BP 142/66; TEMP 97.4; O2SAT 91
[2023-04-16] MEDS: LEVALBUTEROL 1.25MG 0.5ML CONCENTRATE NEB INH SCH ×3 (08:07→19:31)
[2023-04-16] MEDS ORDERED: FUROSEMIDE 40MG/4ML VIAL IV SCH (09:00)
[2023-04-16] MEDS: DOCUSATE SODIUM 100MG CAPSULE PO SCH ×2 (09:27→19:51)
[2023-04-16] MEDS: LIDOCAINE 5% (LIDODERM) PATCH TD SCH (09:27)
[2023-04-16] MEDS: POTASSIUM CHLORIDE 10MEQ SR TABLET PO SCH (09:27)
[2023-04-16] MEDS: PANTOPRAZOLE 40MG TAB (PROTONIX) PO SCH (09:31)
[2023-04-16] MEDS: METOPROLOL SUCC (TopROL XL) 100MG *XL* TAB PO SCH (09:31)
[2023-04-16] MEDS: FINASTERIDE 5MG TAB PO SCH (09:31)
[2023-04-16] MEDS: TAMSULOSIN 0.4 MG CAP PO SCH (09:31)
[2023-04-16] MEDS: DIGOXIN 0.25 MG TAB PO SCH (09:31)
[2023-04-16] MEDS: APIXABAN 5 MG TAB (ELIQUIS) PO SCH ×2 (09:31→20:03)
[2023-04-16 11:55] VITALS: BP 134/58; TEMP 97.1; O2SAT 92
[2023-04-16 15:30] VITALS: BP 172/94; TEMP 97.3; O2SAT 98
[2023-04-16 19:47] VITALS: BP 145/74; TEMP 98.4; O2SAT 93
[2023-04-16] MEDS: ATORVASTATIN 20 MG TAB PO SCH (20:03)
[2023-04-16] MEDS: tiZANidine 4 MG TAB PO SCH (20:03)
[2023-04-16] MEDS: ACETAMINOPHEN TAB 650MG DOSE (2X325MG) PO PRN (21:30)
[2023-04-16 23:27] VITALS: BP 131/72; TEMP 97.4; O2SAT 92
[2023-04-17 03:30] VITALS: BP 148/91; TEMP 97; O2SAT 93
[2023-04-17] MEDS: ACETAMINOPHEN TAB 650MG DOSE (2X325MG) PO PRN (05:21)
[2023-04-17 06:47] LABS: BASO % 0.1 % (0.0-1.0); EOS # 0.2 10^3/uL (0.0-0.5); HEMATOCRIT 35.9 % (42.0-52.0); HEMOGLOBIN 10.4 g/dl (13.5-17.5); LYMPH # 1.6 10^3/uL (1.5-5.0); LYMPH % 18.4 % (24.0-44.0); MEAN CORPUSCULAR HEMOGLOBIN 25.1 pg (27.0-33.0); MEAN CORPUSCULAR VOLUME 86.5 fl (80.0-96.0); MONO # 0.6 10^3/uL (0.0-0.8); MONO % 6.9 % (2.0-8.0); NEUTROPHILS # 6.2 10^3/uL (1.5-8.5); NEUTROPHILS % 72.1 % (36.0-66.0); PLATELET COUNT, AUTOMATED 169 10^3/uL (150-450); RED BLOOD COUNT 4.15 10^6/uL (4.30-6.10); WHITE BLOOD COUNT 8.6 10^3/uL (4.0-10.0)
[2023-04-17 07:07] LABS: BLOOD UREA NITROGEN 20 MG/DL (9-23); CALCIUM LEVEL 8.4 MG/DL (8.3-10.6); CARBON DIOXIDE LEVEL > 40.0 MMOL/L (20-31); CHLORIDE LEVEL 104 MMOL/L (98-107); CREATININE FOR GFR 0.86 MG/DL (0.70-1.30); GLOMERULAR FILTRATION RATE > 60.0 (>49); GLUCOSE, FASTING 114 MG/DL (74-106); POTASSIUM SERUM 3.6 MMOL/L (3.5-5.1); SODIUM LEVEL 146 MMOL/L (136-145)
[2023-04-17 08:00] VITALS: BP 129/65; TEMP 96.9; O2SAT 94
[2023-04-17] MEDS: LEVALBUTEROL 1.25MG 0.5ML CONCENTRATE NEB INH SCH ×3 (08:28→19:23)
[2023-04-17] MEDS: DOCUSATE SODIUM 100MG CAPSULE PO SCH ×2 (08:59→20:07)
[2023-04-17] MEDS: PANTOPRAZOLE 40MG TAB (PROTONIX) PO SCH (09:01)
[2023-04-17] MEDS: DIGOXIN 0.25 MG TAB PO SCH (09:01)
[2023-04-17] MEDS: APIXABAN 5 MG TAB (ELIQUIS) PO SCH ×2 (09:01→20:07)
[2023-04-17] MEDS: TAMSULOSIN 0.4 MG CAP PO SCH (09:01)
[2023-04-17] MEDS: TORSEMIDE 20 MG TAB PO SCH (09:01)
[2023-04-17] MEDS: POTASSIUM CHLORIDE 10MEQ SR TABLET PO SCH (09:01)
[2023-04-17] MEDS: FINASTERIDE 5MG TAB PO SCH (09:02)
[2023-04-17] MEDS: LIDOCAINE 5% (LIDODERM) PATCH TD SCH (09:02)
[2023-04-17] MEDS: METOPROLOL SUCC (TopROL XL) 100MG *XL* TAB PO SCH (09:02)
[2023-04-17] MEDS ORDERED: FLUT1BLS8 IH (10:21)
[2023-04-17] MEDS ORDERED: FLUT1BLS2 IH (10:21)
[2023-04-17 12:00] VITALS: BP 124/55; TEMP 97; O2SAT 92
[2023-04-17 15:51] VITALS: BP 138/83; TEMP 97.6; O2SAT 94
[2023-04-17 19:57] VITALS: BP 151/62; TEMP 97.7; O2SAT 93
[2023-04-17] MEDS: ATORVASTATIN 20 MG TAB PO SCH (20:07)
[2023-04-17] MEDS: tiZANidine 4 MG TAB PO SCH (20:07)
[2023-04-17 23:47] VITALS: BP 109/68; TEMP 97.1; O2SAT 97
[2023-04-18] MEDS: ACETAMINOPHEN TAB 650MG DOSE (2X325MG) PO PRN ×2 (02:52→15:24)
[2023-04-18 03:53] VITALS: BP 105/69; TEMP 97.4; O2SAT 95
[2023-04-18 06:08] LABS: BASO % 0.1 % (0.0-1.0); EOS # 0.2 10^3/uL (0.0-0.5); EOS % 1.4 % (0.0-3.0); HEMOGLOBIN 9.9 g/dl (13.5-17.5); LYMPH # 1.2 10^3/uL (1.5-5.0); LYMPH % 10.3 % (24.0-44.0); MEAN CORPUSCULAR HEMOGLOBIN 24.8 pg (27.0-33.0); MEAN CORPUSCULAR HGB CONC 29.1 g/dl (32.0-36.5); MONO # 0.7 10^3/uL (0.0-0.8); MONO % 6.4 % (2.0-8.0); NEUTROPHILS # 9.4 10^3/uL (1.5-8.5); NEUTROPHILS % 81.4 % (36.0-66.0); PLATELET COUNT, AUTOMATED 158 10^3/uL (150-450); WHITE BLOOD COUNT 11.6 10^3/uL (4.0-10.0)
[2023-04-18 06:31] LABS: BLOOD UREA NITROGEN 21 MG/DL (9-23); CALCIUM LEVEL 8.1 MG/DL (8.3-10.6); CARBON DIOXIDE LEVEL 40 MMOL/L (20-31); CHLORIDE LEVEL 100 MMOL/L (98-107); CREATININE FOR GFR 0.87 MG/DL (0.70-1.30); GLOMERULAR FILTRATION RATE > 60.0 (>49); GLUCOSE, FASTING 131 MG/DL (74-106); POTASSIUM SERUM 3.5 MMOL/L (3.5-5.1); SODIUM LEVEL 143 MMOL/L (136-145)
[2023-04-18] MEDS: LEVALBUTEROL 1.25MG 0.5ML CONCENTRATE NEB INH SCH ×3 (08:22→22:24)
[2023-04-18 09:00] VITALS: BP 128/75; TEMP 97.7; O2SAT 94
[2023-04-18] MEDS: DOCUSATE SODIUM 100MG CAPSULE PO SCH ×2 (09:00→20:12)
[2023-04-18] MEDS: METOPROLOL SUCC (TopROL XL) 100MG *XL* TAB PO SCH (09:32)
[2023-04-18] MEDS: APIXABAN 5 MG TAB (ELIQUIS) PO SCH ×2 (09:33→20:12)
[2023-04-18] MEDS: DIGOXIN 0.25 MG TAB PO SCH (09:33)
[2023-04-18] MEDS: TORSEMIDE 20 MG TAB PO SCH (09:33)
[2023-04-18] MEDS: PANTOPRAZOLE 40MG TAB (PROTONIX) PO SCH (09:33)
[2023-04-18] MEDS: FINASTERIDE 5MG TAB PO SCH (09:33)
[2023-04-18] MEDS: TAMSULOSIN 0.4 MG CAP PO SCH (09:33)
[2023-04-18] MEDS: POTASSIUM CHLORIDE 10MEQ SR TABLET PO SCH (09:34)
[2023-04-18] MEDS: LIDOCAINE 5% (LIDODERM) PATCH TD SCH (09:34)
[2023-04-18] MEDS: ADVAIR HFA 230/21MCG INHALER INH SCH ×2 (11:05→22:24)
[2023-04-18] MEDS: LEVALBUTEROL 1.25MG 0.5ML CONCENTRATE NEB INH PRN (12:00)
[2023-04-18 12:28] VITALS: BP 134/68; TEMP 97.7; O2SAT 95
[2023-04-18] MEDS: LevoFLOXacin 750 MG TABLET PO SCH (12:29)
[2023-04-18] MEDS: SODIUM CHLORIDE HYPERTONIC 3% 4ML NEB SOL INH SCH ×2 (14:00→22:24)
[2023-04-18 15:55] VITALS: BP 138/32; TEMP 97.5; O2SAT 94
[2023-04-18] MEDS: ATORVASTATIN 20 MG TAB PO SCH (20:12)
[2023-04-18 20:20] VITALS: BP 144/75; TEMP 97.4; O2SAT 95
[2023-04-19 00:14] VITALS: BP 147/93; TEMP 96.7; O2SAT 92
[2023-04-19 03:07] VITALS: BP 122/59; TEMP 97.6; O2SAT 93
[2023-04-19] MEDS: ACETAMINOPHEN TAB 650MG DOSE (2X325MG) PO PRN (03:07)
[2023-04-19 04:56] LABS: BASO % 0.1 % (0.0-1.0); EOS # 0.2 10^3/uL (0.0-0.5); HEMATOCRIT 33.9 % (42.0-52.0); LYMPH # 1.6 10^3/uL (1.5-5.0); LYMPH % 19.3 % (24.0-44.0); MEAN CORPUSCULAR HEMOGLOBIN 24.9 pg (27.0-33.0); MEAN CORPUSCULAR HGB CONC 29.5 g/dl (32.0-36.5); MEAN CORPUSCULAR VOLUME 84.3 fl (80.0-96.0); MONO # 0.7 10^3/uL (0.0-0.8); MONO % 8.4 % (2.0-8.0); NEUTROPHILS # 5.7 10^3/uL (1.5-8.5); NEUTROPHILS % 69.7 % (36.0-66.0); PLATELET COUNT, AUTOMATED 155 10^3/uL (150-450); RED BLOOD COUNT 4.02 10^6/uL (4.30-6.10); WHITE BLOOD COUNT 8.2 10^3/uL (4.0-10.0)
[2023-04-19 05:30] LABS: BLOOD UREA NITROGEN 19 MG/DL (9-23); CARBON DIOXIDE LEVEL > 40.0 MMOL/L (20-31); CHLORIDE LEVEL 102 MMOL/L (98-107); CREATININE FOR GFR 1.03 MG/DL (0.70-1.30); GLOMERULAR FILTRATION RATE > 60.0 (>49); GLUCOSE, FASTING 99 MG/DL (74-106); POTASSIUM SERUM 3.4 MMOL/L (3.5-5.1); SODIUM LEVEL 146 MMOL/L (136-145)
[2023-04-19] MEDS: LevoFLOXacin 750 MG TABLET PO SCH (05:38)
[2023-04-19 08:09] VITALS: BP 121/64; TEMP 97.6; O2SAT 96
[2023-04-19] MEDS: ADVAIR HFA 230/21MCG INHALER INH SCH (08:20)
[2023-04-19] MEDS: LEVALBUTEROL 1.25MG 0.5ML CONCENTRATE NEB INH SCH (08:20)
[2023-04-19] MEDS: SODIUM CHLORIDE HYPERTONIC 3% 4ML NEB SOL INH SCH (08:20)
[2023-04-19] MEDS: DIGOXIN 0.25 MG TAB PO SCH (08:57)
[2023-04-19] MEDS: POTASSIUM CHLORIDE 10MEQ SR TABLET PO SCH (08:57)
[2023-04-19] MEDS: TORSEMIDE 20 MG TAB PO SCH (08:57)
[2023-04-19] MEDS: FINASTERIDE 5MG TAB PO SCH (08:57)
[2023-04-19 08:58] VITALS: BP 121/64
[2023-04-19] MEDS: DOCUSATE SODIUM 100MG CAPSULE PO SCH (08:58)
[2023-04-19] MEDS: PANTOPRAZOLE 40MG TAB (PROTONIX) PO SCH (08:58)
[2023-04-19] MEDS: APIXABAN 5 MG TAB (ELIQUIS) PO SCH (08:58)
[2023-04-19] MEDS: METOPROLOL SUCC (TopROL XL) 100MG *XL* TAB PO SCH (08:58)
[2023-04-19] MEDS: TAMSULOSIN 0.4 MG CAP PO SCH (08:58)
[2023-04-19] MEDS: LIDOCAINE 5% (LIDODERM) PATCH TD SCH (08:59)
[2023-04-19] MEDS ORDERED: AMIO200T49 PO (09:16)
[2023-04-19] MEDS ORDERED: LEVO1TAB40 PO (09:16)
[2023-04-19] MEDS ORDERED: LEVALBUTEROL 1.25MG 0.5ML CONCENTRATE NEB INH SCH (10:09)
[2023-04-20] MEDS ORDERED: LEVALBUTEROL 1.25MG 0.5ML CONCENTRATE NEB INH SCH (14:00)
== END 2023-04-19 15:40 | disposition home health service (06) | DRG 291 ==
LOC: M ED 23:25 → EDBD 23:25 → M ED INP 04-13 12:47 → ENRESERV 04-13 14:51 → M PCU 04-13 16:44
PROVIDERS: ADMIT Internal Medicine Nephrology; ATTEND Internal Medicine Nephrology
DX: I11.0 Hypertensive heart disease with heart failure (principal); I50.33 Acute on chronic diastolic (congestive) heart failure; J96.11 Chronic respiratory failure with hypoxia; J96.12 Chronic respiratory failure with hypercapnia; E66.2 Morbid (severe) obesity with alveolar hypoventilation; J44.1 Chronic obstructive pulmonary disease with (acute) exacerbation; I48.20 Chronic atrial fibrillation, unspecified; L97.919 Non-pressure chronic ulcer of unspecified part of right lower leg with unspecified severity; L97.929 Non-pressure chronic ulcer of unspecified part of left lower leg with unspecified severity; J44.0 Chronic obstructive pulmonary disease with (acute) lower respiratory infection; B34.8 Other viral infections of unspecified site; I50.812 Chronic right heart failure; I27.81 Cor pulmonale (chronic); I27.20 Pulmonary hypertension, unspecified; N40.0 Benign prostatic hyperplasia without lower urinary tract symptoms; R26.89 Other abnormalities of gait and mobility; R73.01 Impaired fasting glucose; E78.5 Hyperlipidemia, unspecified; F17.210 Nicotine dependence, cigarettes, uncomplicated; D50.9 Iron deficiency anemia, unspecified; F32.A Depression, unspecified; G62.9 Polyneuropathy, unspecified; I25.10 Atherosclerotic heart disease of native coronary artery without angina pectoris; I25.2 Old myocardial infarction; E04.1 Nontoxic single thyroid nodule; Z99.81 Dependence on supplemental oxygen; Z79.01 Long term (current) use of anticoagulants; Z79.899 Other long term (current) drug therapy; Z91.018 Allergy to other foods; Z91.030 Bee allergy status; Z20.822 Contact with and (suspected) exposure to COVID-19; E87.6 Hypokalemia; R07.89 Other chest pain; J20.6 Acute bronchitis due to rhinovirus